=== PATIENT | female | born 1975 | race African-American/Black ===

== ENCOUNTER 2018-04-09 13:37 | Outpatient (CLI) | payer BC ==
--- NOTE | 2018-04-10 10:15 | MMO ---
BILATERAL MAMMOGRAMS: History: Screening mammography. Comparison: None available. Baseline study. FINDINGS: Heterogeneously dense fibroglandular tissue. No dominant mass or suspicious calcifications. Study was evaluated with the assistance of computer aided detection. IMPRESSION: BIRADS category 1 - negative. Suggest routine follow up. POS: JENNIFER
== END 2018-04-09 13:38 | disposition home or self-care (01) ==
LOC: SCSMAMMO 13:37
PROVIDERS: ATTEND Family Medicine
DX: Z12.31 Encounter for screening mammogram for malignant neoplasm of breast (principal)
CPT/HCPCS: 77067

== ENCOUNTER 2018-04-09 14:40 | Outpatient (CLI) | payer BC ==
--- NOTE | 2018-04-09 15:43 | RAD ---
RIGHT KNEE 4 VIEWS: HISTORY: Acute pain of the right knee. 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 No fracture, dislocation, or bony destruction is identified. POS: OFF
== END 2018-04-09 14:41 | disposition home or self-care (01) ==
LOC: SCSRAD 14:40
PROVIDERS: ATTEND Emergency Medicine
DX: M25.561 Pain in right knee (principal); M17.11 Unilateral primary osteoarthritis, right knee

== ENCOUNTER 2021-04-04 12:48 | Outpatient (CLI) | payer OTHER | END 2021-04-04 12:49 | disposition home or self-care (01) | LOC: SCSRAD 12:48 | PROVIDERS: ATTEND Family Medicine | DX: S89.92XA Unspecified injury of left lower leg, initial encounter (principal); M17.12 Unilateral primary osteoarthritis, left knee ==